=== PATIENT | male | born 1995 | race African-American/Black ===

== ENCOUNTER 2016-02-13 21:02 | Emergency (ER) | payer OTHER ==
[~2016-02-13] VITALS: Ht 172.7 cm; Wt 54.4 kg
[~2016-02-13 21:02] MED LIST: IBUPROFEN600 MG ORAL; MOTRIN400 MG PO; NKM
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
[2016-02-13] MEDS ORDERED: ACETAMINOPHEN-1 EAC1 ORAL (22:05)
[2016-02-13] MEDS ORDERED: Oxycodone/Acetaminophen 5-325 ORAL ONE (22:15)
[2016-02-13 22:25] VITALS: BP 130/72
--- NOTE | 2016-02-18 10:32 | Diagnostic Imaging Report ---
Indication: PAIN Technique: 3 views left hand Comparison: none Findings: There is an oblique fracture of the fourth metacarpal. This is minimally displaced. No other acute fractures. No dislocations. Impression: Positive for fourth metacarpal fracture Electronic medical record indicates this was recognized by the emergency room physician
== END 2016-02-13 22:30 | disposition home or self-care (01) ==
LOC: EMR 21:54
DX: S60.222A Contusion of left hand, initial encounter (principal); X58.XXXA Exposure to other specified factors, initial encounter; Y93.9 Activity, unspecified; Y92.9 Unspecified place or not applicable; M79.642 Pain in left hand
CPT/HCPCS: 29125

== ENCOUNTER 2016-02-27 23:29 | Emergency (ER) | payer OTHER ==
[~2016-02-27] VITALS: Ht 172.7 cm; Wt 58.5 kg
[~2016-02-27 23:29] MED LIST changes: +ACETAMINOPHEN-1 EAC1 ORAL
[2016-02-28 00:06] VITALS: BP 136/81
[2016-02-28 00:15] VITALS: BP 136/81
[2016-02-28] MEDS ORDERED: IBUPROFEN600 MG ORAL (00:37)
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
--- NOTE | 2016-02-28 11:08 | Diagnostic Imaging Report ---
Indication: Trauma Findings: 3 views of the left hand were obtained. There is a cast on the ulnar aspect of the hand. A fourth metacarpal fracture is noted and appears grossly unchanged from the film obtained 02/13/16. The fracture and most of the ulnar aspect of the hand and wrist are obscured by the cast material. Impression: Limited visualization of a fourth metacarpal fracture. Cast material noted.
== END 2016-02-28 00:15 | disposition home or self-care (01) ==
LOC: EMR 02-28 00:15
DX: S62.305A Unspecified fracture of fourth metacarpal bone, left hand, initial encounter for closed fracture (principal); Y04.0XXA Assault by unarmed brawl or fight, initial encounter; Y92.89 Other specified places as the place of occurrence of the external cause; Y99.9 Unspecified external cause status
CPT/HCPCS: 99283

== ENCOUNTER 2016-08-02 23:43 | Emergency (ER) | payer MEDICAID, OTHER ==
[~2016-08-02] VITALS: Ht 172.7 cm; Wt 56.7 kg
[2016-08-03 00:32] LABS: APPEARANCE,URINE SLIGHTLY CLOUDY; KETONES,URINE NEGATIVE (NEGATIVE); LEUKOCYTE ESTERASE ,URINE 1+ (NEGATIVE); NITRITE,URINE NEGATIVE (NEGATIVE); PH,URINE 7 (4.5-8.0); PROTEIN,URINE NEGATIVE (NEGATIVE); UROBILINOGEN,URINE NORMAL MG/DL (0.0-1.0)
[2016-08-03 00:54] LABS: AMORPHOUS SEDIMENT,UR MANY /LPF; BACTERIA,URINE FEW /HPF; RBC,URINE 0-2 /HPF (0 - 0); SQUAMOUS EPITHELIAL CELL,UR FEW /LPF (NONE/OCC)
[2016-08-03] MEDS ORDERED: Azithromycin 250mg tab ORAL ONE (01:00)
[2016-08-03] MEDS ORDERED: Lidocaine 1% MPF 10mg/ml 5ml ONE (01:12)
[2016-08-03 01:21] VITALS: BP 158/94
[2016-08-03 01:26] VITALS: BP 132/78
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
== END 2016-08-03 01:28 | disposition home or self-care (01) ==
LOC: EMR 23:58
DX: N34.2 Other urethritis (principal)
CPT/HCPCS: 81003; 96372; 99283; J0696; Q0144

== ENCOUNTER 2016-08-10 01:08 | Emergency (ER) | payer MEDICAID, OTHER ==
[~2016-08-10] VITALS: Ht 172.7 cm; Wt 56.7 kg
[2016-08-10] MEDS ORDERED: NKM (01:19)
[2016-08-10 01:31] VITALS: BP 147/83
[2016-08-10] MEDS ORDERED: Lidocaine 2% Visc 15ml soln ONE (01:37)
[2016-08-10] MEDS ORDERED: Mylanta II UD 30ml ORAL ONE (01:45)
[2016-08-10] MEDS ORDERED: Lidocaine 2% Visc 15ml soln ORAL ONE (01:45)
[2016-08-10] MEDS ORDERED: PRILOSEC OTC20 MG ORAL (02:07)
--- NOTE | 2016-08-10 02:07 | Emergency Room Report ---
History of Present Illness General Chief Complaint: Abdominal Pain Source: Patient Present Illness HPI Is a 21-year-old male with no significant past medical history. He presents with epigastric pain is been on off for couple weeks. No fever or chills. Crampy in nature. No radiation. No nausea vomiting. No diarrhea. Nothing made it better. Nothing made it worse Allergies: Coded Allergies: No Known Allergies (Unverified , 06/18/12) Patient History Past Medical History: see triage record, old chart reviewed Past Surgical History: other Pertinent Family History: none Social History: Denies: drug use Immunizations: other Reviewed Nursing Documentation: PMH: Agreed, PSxH: Agreed Nursing Documentation-PMH Past Medical History: No Stated History Review of Systems Eye: Denies: blurred vision, eye pain ENT: Denies: ear pain, nose congestion, throat swelling Respiratory: Denies: cough, shortness of breath Cardiovascular: Denies: chest pain, palpitations Gastrointestinal: Reports: abdominal pain, Denies: diarrhea, nausea, vomiting Musculoskeletal: Denies: back pain, joint pain Skin: Denies: rash Neurological: Denies: headache, numbness Endocrine: Denies: increased thirst, increased urine Hematologic/Lymphatic: Denies: easy bruising All Other Systems: negative except mentioned in HPI Physical Exam Vital Signs Date Time Temp Pulse Resp B/P Pulse Ox O2 Delivery O2 Flow Rate FiO2 08/10/16 01:16 97.3 62 14 157/92 96 Room Air vitals normal except for mild hypertension Sp02 EP Interpretation: reviewed, normal General Appearance: well appearing, no apparent distress, alert Head: normocephalic, atraumatic Eyes: bilateral eye EOMI, bilateral eye PERRL ENT: hearing grossly normal, normal pharynx Neck: full range of motion, supple, no meningismus Respiratory: chest non-tender, lungs clear, normal breath sounds Cardiovascular #1: regular rate, rhythm, no murmur Gastrointestinal: normal bowel sounds, non tender, no mass, no organomegaly, no bruit, non-distended Musculoskeletal: back normal, gait/station normal, normal range of motion Psychiatric: mood/affect normal Skin: warm/dry Medical Decision Making Diagnostic Impression: Primary Impression: Gastritis Qualified Codes: K29.00 - Acute gastritis without bleeding ER Course Patient with epigastric pain. This may be peptic ulcer disease, gastritis, H. pylori infection to name a few. Abdominal exam is benign. He is asymptomatic after a GI cocktail. We'll discharge home. I see no evidence of acute abdomen or obstruction. Last Vital Signs Date Time Temp Pulse Resp B/P Pulse Ox O2 Delivery O2 Flow Rate FiO2 08/10/16 01:31 97.3 87 14 147/83 96 Room Air Status: improved Disposition: HOME, SELF-CARE Condition: Stable Scripts Omeprazole Magnesium (PRILOSEC OTC) 20 Mg Tablet. 20 MG ORAL DAILY, #30 TAB Prov: AMANDA MCPHERSON M.D. 08/10/16 Referrals: NOT CHOSEN [facility]/,REFERRING (PCP) Patient Instructions: Gastritis, Adult Additional Instructions: followup your DrAylin in 2-7 days. Return if worse. AMANDA MCPHERSON M.D. Aug 10, 2016 02:07
[2016-08-10 02:14] VITALS: BP 147/83
== END 2016-08-10 02:15 | disposition home or self-care (01) ==
LOC: EMR 01:47
DX: K29.00 Acute gastritis without bleeding (principal)
CPT/HCPCS: 99283

== ENCOUNTER 2016-08-22 16:33 | Emergency (ER) | payer MEDICAID, OTHER ==
[~2016-08-22] VITALS: Ht 172.7 cm; Wt 54.4 kg
[~2016-08-22 16:33] MED LIST changes: +PRILOSEC OTC20 MG ORAL
[2016-08-22 16:45] VITALS: BP 127/72
[2016-08-22] MEDS ORDERED: Mylanta II UD 30ml ORAL ONE (17:00)
[2016-08-22] MEDS ORDERED: Dicyclomine HCl 10mg/5ml oral soln ORAL ONE (17:00)
[2016-08-22] MEDS ORDERED: Lidocaine 2% Visc 15ml soln ORAL ONE (17:00)
[2016-08-22] MEDS ORDERED: Norco 7.5mg/325mg tab ORAL ONE (17:15)
[2016-08-22 17:19] LABS: APPEARANCE,URINE CLEAR; KETONES,URINE NEGATIVE (NEGATIVE); LEUKOCYTE ESTERASE ,URINE 1+ (NEGATIVE); NITRITE,URINE NEGATIVE (NEGATIVE); PH,URINE 7 (4.5-8.0); PROTEIN,URINE NEGATIVE (NEGATIVE); UROBILINOGEN,URINE NORMAL MG/DL (0.0-1.0)
[2016-08-22 17:40] LABS: BACTERIA,URINE FEW /HPF; RBC,URINE 0-2 /HPF (0 - 0)
[2016-08-22] MEDS ORDERED: CEPHALEXIN500 MG ORAL (17:52)
[2016-08-22] MEDS ORDERED: PEPCID20 MG ORAL (17:52)
[2016-08-22 17:59] VITALS: BP 119/79
--- NOTE | 2016-08-22 21:51 | Emergency Room Report ---
History of Present Illness General Chief Complaint: General Complaint Source: Patient Present Illness HPI The patient is a 21-year-old male presenting for multiple complaints including abdominal pain and testicular pain. The patient states that he was recently diagnosed with GERD and has been taking omeprazole which helped with his symptoms but he is now experiencing loading and mid-upper abdominal pain. This is described as a 5/10 dull ache and does not radiate. No known provoking or relieving factors. He also experienced posterior testicular pain which occurred after sex. No known injury. Described as 8/10 dull ache. Worse with touch. He denies dysuria, hematuria, N, V, F, chills, penile DC Allergies: Coded Allergies: No Known Allergies (Unverified , 06/18/12) Patient History Past Medical History: see triage record Pertinent Family History: none Reviewed Nursing Documentation: PMH: Agreed, PSxH: Agreed Nursing Documentation-PMH Past Medical History: No Stated History Review of Systems All Other Systems: negative except mentioned in HPI Physical Exam Vital Signs Date Time Temp Pulse Resp B/P Pulse Ox O2 Delivery O2 Flow Rate FiO2 08/22/16 16:39 97.7 82 14 127/72 100 Room Air Sp02 EP Interpretation: reviewed, normal General Appearance: no apparent distress, alert, GCS 15, non-toxic Head: normocephalic, atraumatic Eyes: bilateral eye PERRL, bilateral eye normal inspection ENT: hearing grossly normal, normal pharynx, no angioedema, normal voice Neck: full range of motion, supple/symm/no masses Gastrointestinal: normal bowel sounds, soft, no mass, non-distended, no guarding, tenderness - epigastric Rectal: deferred Genitourinary: normal inspection, no CVA tenderness Neurologic: alert, oriented x3, responsive, motor strength/tone normal, sensory intact, speech normal Psychiatric: judgement/insight normal, memory normal, mood/affect normal, no suicidal/homicidal ideation Skin: normal color, no rash, warm/dry, well hydrated Medical Decision Making PA Attestation Dr. Howell is my supervising physician. Patient management was discussed with my supervising physician Diagnostic Impression: Primary Impression: GERD (gastroesophageal reflux disease) Qualified Codes: K21.9 - Gastro-esophageal reflux disease without esophagitis Additional Impression: Urinary tract infection Qualified Codes: N39.0 - Urinary tract infection, site not specified ER Course The patient is a 21-year-old male presenting for multiple complaints including abdominal pain and testicular pain. Differential diagnoses considered but not limited to: Gastroenteritis, gastritis , GERD, pancreatitis, appendicitis, UTI, STD, among others Physical exam: Vitals are within normal limits. No apparent distress Abdomen is tender to palpation over the epigastric region only. No guarding. No distention. There is tenderness to palpation over the mid posterior scrotum UA shows bacteria and 1+ leuk esterase The patient is told to stop using omeprazole due to abdominal pain. He is given a prescription for Pepcid and needs to followup with primary doctor soon as possible. Also be treated for a urinary tract infection. ER precautions given Laboratory Tests Test 08/22/16 16:56 Urine Color Pale yellow Urine Appearance Clear Urine pH 7 (4.5-8.0) Urine Specific [place] 1.010 (1.005-1.035) Urine Protein Negative (NEGATIVE) Urine Glucose (UA) Negative (NEGATIVE) Urine Ketones Negative (NEGATIVE) Urine Occult Blood Negative (NEGATIVE) Urine Nitrite Negative (NEGATIVE) Urine Bilirubin Negative (NEGATIVE) Urine Urobilinogen Normal MG/DL (0.0-1.0) Urine Leukocyte Esterase 1+ (NEGATIVE) H Urine RBC 0-2 /HPF (0 - 0) H Urine WBC 2-4 /HPF (0 - 0) Urine Squamous Epithelial Cells None /LPF (NONE/OCC) Urine Bacteria Few /HPF (NONE) Lab Results Impression UA shows bacteria and 1+ leuk esterase Last Vital Signs Date Time Temp Pulse Resp B/P Pulse Ox O2 Delivery O2 Flow Rate FiO2 08/22/16 17:59 16 119/79 98 Room Air 08/22/16 17:49 97.7 08/22/16 16:39 82 Status: improved Disposition: HOME, SELF-CARE Condition: Improved Scripts Cephalexin* (KEFLEX*) 500 Mg Capsule 500 MG ORAL EVERY 12 HOURS, #14 CAP 0 Refills Prov: TERZIAN,GABE P.A. 08/22/16 Famotidine (PEPCID) 20 Mg Tablet 20 MG ORAL DAILY, #7 TAB 0 Refills Prov: TERZIAN,GABE P.A. 08/22/16 Patient Instructions: Safe Sex, Indigestion Additional Instructions: I discussed my findings with the patient. All questions and concerns have been answered. Treatment and medication compliance have been addressed. I advised the patient that they need to follow up with PMD in 3-5 days. Return to ED if symptoms worsen, new symptoms arise, or if needed for any reason. Patient verbalized understanding of discharge instructions. GABE ROME Aug 22, 2016 21:51
== END 2016-08-22 18:03 | disposition home or self-care (01) ==
LOC: EMR 17:17
DX: K21.9 Gastro-esophageal reflux disease without esophagitis (principal); N39.0 Urinary tract infection, site not specified; N50.819 Testicular pain, unspecified
CPT/HCPCS: 81003; 99284

== ENCOUNTER 2016-08-26 22:26 | Emergency (ER) | payer MEDICAID, OTHER ==
[~2016-08-26] VITALS: Ht 172.7 cm; Wt 54.4 kg
[~2016-08-26 22:26] MED LIST changes: +CEPHALEXIN500 MG ORAL; +PEPCID20 MG ORAL
[2016-08-26 23:25] VITALS: BP 147/87
[2016-08-27 00:01] VITALS: BP 147/87
--- NOTE | 2016-08-27 04:47 | Emergency Room Report ---
History of Present Illness General Chief Complaint: Palpitations Source: Patient Present Illness HPI 21-year-old male presents ED complaining of palpitations. States noticing that his heart was racing for the last day. Denies any palpitations at this time. Denies any chest pain shortness of breath. Denies smoking or drug use. Denies feeling anxious. No other aggravating or relieving factors. Denies any other associated symptoms Allergies: Coded Allergies: No Known Allergies (Unverified , 06/18/12) Patient History Past Medical History: none Past Surgical History: none Pertinent Family History: none Social History: Denies: alcohol use, drug use, smoking Immunizations: UTD Reviewed Nursing Documentation: PMH: Agreed, PSxH: Agreed Nursing Documentation-PMH Past Medical History: No History, Except For Review of Systems All Other Systems: negative except mentioned in HPI Physical Exam Vital Signs Date Time Temp Pulse Resp B/P Pulse Ox O2 Delivery O2 Flow Rate FiO2 08/26/16 23:09 97.5 65 18 165/90 97 Room Air Sp02 EP Interpretation: reviewed, normal General Appearance: no apparent distress, alert, GCS 15, non-toxic Head: normocephalic, atraumatic Eyes: bilateral eye PERRL, bilateral eye normal inspection ENT: hearing grossly normal, normal pharynx, no angioedema, normal voice Neck: full range of motion, supple/symm/no masses Respiratory: chest non-tender, lungs clear, normal breath sounds, speaking full sentences Cardiovascular #1: regular rate, rhythm, no edema Cardiovascular #2: 2+ carotid (R), 2+ carotid (L), 2+ radial (R), 2+ radial (L) , 2+ dorsalis pedis (R), 2+ dorsalis pedis (L) Gastrointestinal: normal bowel sounds, non tender, soft, non-distended, no guarding, no rebound Rectal: deferred Genitourinary: normal inspection, no CVA tenderness Musculoskeletal: back normal, gait/station normal, normal range of motion, non- tender Neurologic: alert, oriented x3, responsive, motor strength/tone normal, sensory intact, speech normal Psychiatric: judgement/insight normal, memory normal, mood/affect normal, no suicidal/homicidal ideation Reflexes: 3+ bicep (R), 3+ bicep (L), 3+ tricep (R), 3+ tricep (L), 3+ knee (R) , 3+ knee (L) Skin: normal color, no rash, warm/dry, well hydrated Lymphatic: no adenopathy Medical Decision Making Diagnostic Impression: Primary Impression: Palpitations ER Course Hospital Course 21-year-old M presents ED complaining of palpitations Differential diagnoses include: afib, Vtach, SVT, anxiety, dehydration Clinical course Patient placed on stretcher. After initial history and physical I ordered EKG EKG shows normal sinus rhythm with repolarization abnormality interpreted by myself Given lack of symptoms at this time I believe patient be safely discharged to home. Recommend patient return during episode of palpitations or followup with PMD I. I feel this is a highly complex case requiring extensive working including EKG/Rhythm strip, Xray/CT/US, Blood/urine lab work, repeat exams while in ED, and administration of strong opiates/narcotics for pain control, admission to hospital or close patient follow up. Diagnosis - palpitations Stable and discharged to home. Instructed to followup with PMD. Return to ED if symptoms recur or worsen EKG Diagnostic Results Rate: normal Rhythm: NSR ST Segments: other - repolarization abnromality ASA given to the pt in ED: No Rhythm Strip Diag. Results EP Interpretation: yes Rhythm: NSR, no PVC's, no ectopy Last Vital Signs Date Time Temp Pulse Resp B/P Pulse Ox O2 Delivery O2 Flow Rate FiO2 08/26/16 23:09 97.5 65 18 165/90 97 Room Air Status: improved Disposition: HOME, SELF-CARE Condition: Stable Referrals: [employer] [facility] (PCP) Patient Instructions: Palpitations, [id number] NEFTALI GONZALEZ M.D. Aug 27, 2016 04:47
--- NOTE | 2016-08-28 16:40 | Cardiology Report ---
APPROVED REPORT EKG Measurement Heart [id number] ID [id number] Normal sinus rhythm with sinus arrhythmia RSR' or QR pattern in V1 suggests right ventricular conduction delay Nonspecific ST abnormality Abnormal ECG
== END 2016-08-27 00:01 | disposition home or self-care (01) ==
LOC: EMR 23:27
DX: R00.2 Palpitations (principal)
CPT/HCPCS: 93005; 99283

== ENCOUNTER 2016-09-01 23:47 | Emergency (ER) | payer MEDICAID, OTHER ==
[~2016-09-01] VITALS: Ht 172.7 cm; Wt 56.7 kg
[2016-09-02 00:01] VITALS: BP 126/74
--- NOTE | 2016-09-02 00:15 | Emergency Room Report ---
History of Present Illness General Chief Complaint: Male Urogenital Problems Source: Patient Present Illness HPI Is a 21-year-old male with no significant past medical history. He presents with chief complaint of swelling to the groin area. History of this to omeprazole. He said when he was on it he noticed some mild swelling to his arm , chest, face area. He stopped and he seemed to improve. Now he said that groin area would swell up and down. Denies any fever or chills. Denies any nausea or vomiting. Nothing made it better. Nothing made it worse. He point to the perineal area. Allergies: Coded Allergies: No Known Allergies (Unverified , 06/18/12) Patient History Past Medical History: see triage record, old chart reviewed Past Surgical History: other Pertinent Family History: none Social History: Denies: drug use Immunizations: other Reviewed Nursing Documentation: PMH: Agreed, PSxH: Agreed Review of Systems Eye: Denies: blurred vision, eye pain ENT: Denies: ear pain, nose congestion, throat swelling Respiratory: Denies: cough, shortness of breath Cardiovascular: Denies: chest pain, palpitations Gastrointestinal: Denies: abdominal pain, diarrhea, nausea, vomiting Musculoskeletal: Denies: back pain, joint pain Skin: Denies: rash Neurological: Denies: headache, numbness Endocrine: Denies: increased thirst, increased urine Hematologic/Lymphatic: Denies: easy bruising All Other Systems: negative except mentioned in HPI Physical Exam Vital Signs Date Time Temp Pulse Resp B/P Pulse Ox O2 Delivery O2 Flow Rate FiO2 09/01/16 23:52 98.1 78 18 126/74 100 Room Air vitals normal Sp02 EP Interpretation: reviewed, normal General Appearance: well appearing, no apparent distress, alert Head: normocephalic, atraumatic Eyes: bilateral eye EOMI, bilateral eye PERRL ENT: hearing grossly normal, normal pharynx Neck: full range of motion, supple, no meningismus Respiratory: chest non-tender, lungs clear, normal breath sounds Cardiovascular #1: regular rate, rhythm, no murmur Gastrointestinal: normal bowel sounds, non tender, no mass, no organomegaly, no bruit, non-distended Genitourinary: normal inspection, penis normal, scrotum normal Musculoskeletal: back normal, gait/station normal, normal range of motion Psychiatric: mood/affect normal Skin: warm/dry Medical Decision Making Diagnostic Impression: Primary Impression: Groin pain Qualified Codes: R10.30 - Lower abdominal pain, unspecified ER Course Patient with nonspecific groin pain. My exam is completely normal. I suspect is mostly anxiety related. No evidence of infection. No evidence of abscess. Patient reassured we'll discharge home. Last Vital Signs Date Time Temp Pulse Resp B/P Pulse Ox O2 Delivery O2 Flow Rate FiO2 09/01/16 23:52 98.1 78 18 126/74 100 Room Air Status: unchanged Disposition: HOME, SELF-CARE Condition: Stable Additional Instructions: followup with your Dr. in 7 days. Return if symptom worsen. AMANDA MCPHERSON M.D. Sep 02, 2016 00:15
[2016-09-02 00:23] VITALS: BP 126/74
[2016-09-02] MEDS ORDERED: FAMOTIDINE20 MG ORAL (23:17)
== END 2016-09-02 00:23 | disposition home or self-care (01) ==
LOC: EMR 09-02 00:10
DX: R10.30 Lower abdominal pain, unspecified (principal)
CPT/HCPCS: 99282; 99283

== ENCOUNTER 2016-09-02 22:36 | Emergency (ER) | payer MEDICAID, OTHER ==
[~2016-09-02] VITALS: Ht 172.7 cm; Wt 56.7 kg
[2016-09-02 23:10] VITALS: BP 128/82
[2016-09-02] MEDS ORDERED: FAMOTIDINE20 MG ORAL (23:17)
[2016-09-02 23:25] VITALS: BP 128/82
--- NOTE | 2016-09-02 23:26 | Emergency Room Report ---
History of Present Illness General Chief Complaint: Medication Refill Present Illness HPI Patient is a 21-year-old male who presented after increased epigastric discomfort. Patient recently stopped his Pepcid. He reports having increased burning sensation his epigastric area. Patient presented for medication refill. He denied any black or bloody stools. He denied any vomiting. Allergies: Coded Allergies: No Known Allergies (Unverified , 06/18/12) Patient History Past Medical History: see triage record Reviewed Nursing Documentation: PMH: Agreed, PSxH: Agreed Review of Systems All Other Systems: negative except mentioned in HPI Physical Exam Vital Signs Date Time Temp Pulse Resp B/P Pulse Ox O2 Delivery O2 Flow Rate FiO2 09/02/16 22:59 97.9 88 16 131/80 99 Sp02 EP Interpretation: normal General Appearance: GCS 15 Head: normocephalic, atraumatic ENT: hearing grossly normal, normal voice Neck: full range of motion, supple Respiratory: no respiratory distress, speaking full sentences Cardiovascular #1: normal inspection Gastrointestinal: normal inspection Musculoskeletal: no calf tenderness, other - fracture to left hand Neurologic: normal inspection, alert, normal gait Psychiatric: mood/affect normal Skin: no rash Medical Decision Making Diagnostic Impression: Primary Impression: Medicine refill ER Course Patient presented for medication refill of Pepcid. The patient was given a refill for Pepcid. Patient shows no acute signs of toxicity require further workup.The patient is advised to follow up with primary care doctor in 1-2 days. Patient is advised to return if any worsening condition or if any changes in status that are concerning. Last Vital Signs Date Time Temp Pulse Resp B/P Pulse Ox O2 Delivery O2 Flow Rate FiO2 09/02/16 22:59 97.9 88 16 131/80 99 Status: improved Disposition: HOME, SELF-CARE Condition: Stable Scripts Famotidine (FAMOTIDINE) 20 Mg Tablet 20 MG ORAL DAILY, #30 TAB 0 Refills Prov: Nick Abad 09/02/16 Patient Instructions: Medicine Refill at the Emergency Department Nick Abad Sep 02, 2016 23:26
== END 2016-09-02 23:25 | disposition home or self-care (01) ==
LOC: EMR 23:10
DX: R10.13 Epigastric pain (principal); Z76.0 Encounter for issue of repeat prescription
CPT/HCPCS: 99283

== ENCOUNTER 2016-09-23 20:58 | Emergency (ER) | payer OTHER ==
[~2016-09-23] VITALS: Ht 172.7 cm; Wt 54.4 kg
[~2016-09-23 20:58] MED LIST changes: +FAMOTIDINE20 MG ORAL
[2016-09-23 21:45] VITALS: BP 125/76
[2016-09-23 21:52] LABS: APPEARANCE,URINE CLEAR; KETONES,URINE NEGATIVE (NEGATIVE); LEUKOCYTE ESTERASE ,URINE 1+ (NEGATIVE); NITRITE,URINE NEGATIVE (NEGATIVE); PH,URINE 6.5 (4.5-8.0); PROTEIN,URINE NEGATIVE (NEGATIVE); UROBILINOGEN,URINE NORMAL MG/DL (0.0-1.0)
[2016-09-23 22:02] LABS: BACTERIA,URINE OCCASIONAL /HPF; RBC,URINE 0-2 /HPF (0 - 0); WBC,URINE 0-2 /HPF (0 - 0)
[2016-09-23] MEDS ORDERED: KEFLEX500 MG ORAL (22:13)
[2016-09-23 22:20] VITALS: BP 120/76
[2016-09-23 22:25] VITALS: BP 120/76
--- NOTE | 2016-09-23 23:27 | Emergency Room Report ---
History of Present Illness General Chief Complaint: Eye Problems Source: Patient Present Illness HPI 21-year-old male presents to ER for evaluation. States that last 3 days she's noticed some in pain with urination. Denies any discharge. Denies any recent sexual activity. And patient was triaged as and having photophobia. Patient states he had some photophobia for a few moments a few days ago which has since resolved. No other aggravating relieving factors. Denies any other associated symptoms Allergies: Coded Allergies: No Known Allergies (Unverified , 06/18/12) Patient History Past Medical History: none Past Surgical History: none Pertinent Family History: none Social History: Denies: alcohol use, drug use, smoking Immunizations: UTD Reviewed Nursing Documentation: PMH: Agreed, PSxH: Agreed Review of Systems All Other Systems: negative except mentioned in HPI Physical Exam Vital Signs Date Time Temp Pulse Resp B/P Pulse Ox O2 Delivery O2 Flow Rate FiO2 09/23/16 21:25 98.1 77 18 124/75 98 Room Air Sp02 EP Interpretation: reviewed, normal General Appearance: no apparent distress, alert, GCS 15, non-toxic Head: normocephalic, atraumatic Eyes: bilateral eye PERRL, bilateral eye normal inspection ENT: hearing grossly normal, normal pharynx, no angioedema, normal voice Neck: full range of motion, supple/symm/no masses Respiratory: chest non-tender, lungs clear, normal breath sounds, speaking full sentences Cardiovascular #1: regular rate, rhythm, no edema Cardiovascular #2: 2+ carotid (R), 2+ carotid (L), 2+ radial (R), 2+ radial (L) , 2+ dorsalis pedis (R), 2+ dorsalis pedis (L) Gastrointestinal: normal bowel sounds, non tender, soft, non-distended, no guarding, no rebound Rectal: deferred Genitourinary: normal inspection, no CVA tenderness Musculoskeletal: back normal, gait/station normal, normal range of motion, non- tender Neurologic: alert, oriented x3, responsive, motor strength/tone normal, sensory intact, speech normal Psychiatric: judgement/insight normal, memory normal, mood/affect normal, no suicidal/homicidal ideation Reflexes: 3+ bicep (R), 3+ bicep (L), 3+ tricep (R), 3+ tricep (L), 3+ knee (R) , 3+ knee (L) Skin: normal color, no rash, warm/dry, well hydrated Lymphatic: no adenopathy Medical Decision Making Diagnostic Impression: Primary Impression: UTI (urinary tract infection) Qualified Codes: N39.0 - Urinary tract infection, site not specified ER Course Hospital Course 21-year-old male presents to ED complaining of dysuria Differential diagnoses include: UTI, cystitis, pyelonephritis Clinical course Patient placed on stretcher. After initial history and physical I ordered UA UA shows evidence of UTI Diagnosis - UTI Stable and discharged home with prescriptions for Rx Keflex. instructed to followup with PMD. Return to ED if symptoms recur or worsen Labs Test 09/23/16 21:41 Urine Color Pale yellow Urine Appearance Clear Urine pH 6.5 (4.5-8.0) Urine Specific [place] 1.015 (1.005-1.035) Urine Protein Negative (NEGATIVE) Urine Glucose (UA) Negative (NEGATIVE) Urine Ketones Negative (NEGATIVE) Urine Occult Blood Negative (NEGATIVE) Urine Nitrite Negative (NEGATIVE) Urine Bilirubin Negative (NEGATIVE) Urine Urobilinogen Normal MG/DL (0.0-1.0) Urine Leukocyte Esterase 1+ (NEGATIVE) Urine RBC 0-2 /HPF (0 - 0) Urine WBC 0-2 /HPF (0 - 0) Urine Squamous Epithelial Cells None /LPF (NONE/OCC) Urine Bacteria Occasional /HPF (NONE) Last Vital Signs Date Time Temp Pulse Resp B/P Pulse Ox O2 Delivery O2 Flow Rate FiO2 09/23/16 22:25 98.2 82 17 120/76 98 Room Air Status: improved Disposition: HOME, SELF-CARE Condition: Stable Scripts Cephalexin* (KEFLEX*) 500 Mg Capsule 500 MG ORAL Q6H, #28 CAP 0 Refills Prov: NEFTALI GONZALEZ M.D. 09/23/16 Referrals: [facility] (PCP) Patient Instructions: Dysuria NEFTALI GONZALEZ M.D. Sep 23, 2016 23:27
== END 2016-09-23 22:25 | disposition home or self-care (01) ==
LOC: EMR 21:26
DX: N39.0 Urinary tract infection, site not specified (principal)
CPT/HCPCS: 81003; 99283

== ENCOUNTER 2017-06-21 12:19 | Emergency (ER) | payer MEDICAID, OTHER ==
[~2017-06-21] VITALS: Ht 172.7 cm; Wt 56.7 kg
[~2017-06-21 12:19] MED LIST changes: +KEFLEX500 MG ORAL
[2017-06-21] MEDS ORDERED: Lidocaine 1% MPF 10mg/ml 5ml INJ ONE (12:45)
[2017-06-21 12:59] VITALS: BP 138/84
[2017-06-21 14:10] LABS: APPEARANCE,URINE CLEAR; BILIRUBIN, URINE NEGATIVE (NEGATIVE); GLUCOSE, URINE (UA) NEGATIVE (NEGATIVE); KETONES,URINE NEGATIVE (NEGATIVE); LEUKOCYTE ESTERASE ,URINE NEGATIVE (NEGATIVE); NITRITE,URINE NEGATIVE (NEGATIVE); PH,URINE 6 (4.5-8.0); PROTEIN,URINE 1+ (NEGATIVE); UROBILINOGEN,URINE 4 MG/DL (0.0-1.0)
--- NOTE | 2017-06-21 14:15 | Emergency Room Report ---
History of Present Illness General Chief Complaint: Male Urogenital Problems Source: Patient Present Illness HPI 22 YO Male Penile "irritation" and clear d/c x 1 day. denies rashes, lesions, swollen tender lymph nodes, testicular pain or swelling. pt. denies recent unprotected sexual intercourse. pt. reports hx of std's in the past and states his symptoms are not similar. denies abdominal pain or tenderness. Denies fevers, chills, or joint pain. Pt. reports some dysuria. Allergies: Coded Allergies: No Known Allergies (Unverified , 06/18/12) Patient History Past Medical History: see triage record Past Surgical History: none Pertinent Family History: none Reviewed Nursing Documentation: PMH: Agreed; PSxH: Agreed Nursing Documentation-PMH Past Medical History: No Stated History Review of Systems All Other Systems: negative except mentioned in HPI Physical Exam Vital Signs Date Time Temp Pulse Resp B/P (MAP) Pulse Ox O2 Delivery O2 Flow Rate FiO2 06/21/17 12:25 97.9 75 12 138/84 97 Room Air 97.9 Sp02 EP Interpretation: reviewed, normal General Appearance: no apparent distress, alert, GCS 15, non-toxic Head: normocephalic, atraumatic Eyes: bilateral eye normal inspection, bilateral eye PERRL ENT: hearing grossly normal, normal voice Neck: full range of motion Respiratory: chest non-tender, lungs clear, normal breath sounds, speaking full sentences Cardiovascular #1: regular rate, rhythm Gastrointestinal: normal bowel sounds, non tender, soft Rectal: deferred Genitourinary: normal inspection, scrotum normal, other - clear penile d/c noted/ mucus, non purulent, no rashes , lesions , no testicular tenderness or swelling. Musculoskeletal: back normal, gait/station normal, normal range of motion, non- tender Neurologic: alert, oriented x3, responsive, motor strength/tone normal, sensory intact, speech normal, grossly normal Psychiatric: judgement/insight normal Skin: normal color, no rash, warm/dry, well hydrated Lymphatic: no adenopathy Medical Decision Making PA Attestation Dr. Mejía is my supervising Physician whom patient management has been discussed with. Diagnostic Impression: Primary Impression: Urethritis ER Course 22 YO Male Penile "irritation" and clear d/c x 1 day. denies rashes, lesions, swollen tender lymph nodes, testicular pain or swelling. pt. denies recent unprotected sexual intercourse. pt. reports hx of std's in the past and states his symptoms are not similar. denies abdominal pain or tenderness. Denies fevers, chills, or joint pain. Pt. reports some dysuria. Ddx considered but are not limited to UTi , Urethritis, LGV, STI, Stone, Cystitis, prostatitis Frame Fixer for PE was: RX. Trujong. Vital signs: are WNL, pt. is afebrile H&PE are most consistent with Urethritis ORDERS: - UA : few mucus, negative nitrite, no inflammatory marker elevation. ED INTERVENTIONS: -250mg Rocephin IM DISCHARGE: At this time pt. is stable for d/c to home. Will provide printed patient care instructions, and any necessary prescriptions. Care plan and follow up instructions have been discussed with the patient prior to discharge. Labs Test 06/21/17 12:29 Urine Color Yellow Urine Appearance Clear Urine pH 6 (4.5-8.0) Urine Specific [place] 1.020 (1.005-1.035) Urine Protein 1+ (NEGATIVE) Urine Glucose (UA) Negative (NEGATIVE) Urine Ketones Negative (NEGATIVE) Urine Occult Blood Negative (NEGATIVE) Urine Nitrite Negative (NEGATIVE) Urine Bilirubin Negative (NEGATIVE) Urine Urobilinogen 4 MG/DL (0.0-1.0) Urine Leukocyte Esterase Negative (NEGATIVE) Urine RBC 0-2 /HPF (0 - 0) Urine WBC 0-2 /HPF (0 - 0) Urine Squamous Epithelial Cells Few /LPF (NONE/OCC) Urine Bacteria Few /HPF (NONE) Urine Hyaline Casts 0-2 /LPF (NONE) Urine Mucus Few /LPF (NONE/OCC) Last Vital Signs Date Time Temp Pulse Resp B/P (MAP) Pulse Ox O2 Delivery O2 Flow Rate FiO2 06/21/17 12:59 97.9 12 138/84 97 Room Air 97.9 06/21/17 12:25 75 Disposition: HOME, SELF-CARE Condition: Stable Scripts Phenazopyridine Hcl* (PYRIDIUM*) 200 Mg Tablet 200 MG ORAL THREE TIMES A DAY for 2 Days, #6 TAB 0 Refills Prov: Darleen Vergara P.A. 06/21/17 Doxycycline Hyclate* (VIBRAMYCIN*) 100 Mg Capsule 100 MG ORAL EVERY 12 HOURS for 7 Days, #14 CAP 0 Refills Prov: Darleen Vergara 06/21/17 Referrals: NON PHYSICIAN (PCP) Patient Instructions: Urethritis, Adult Additional Instructions: Take medications as directed. Follow up with a Primary Care Provider in 3-5 days, even if your symptoms have resolved. --Please review list of primary care clinics, if you do not already have a primary care provider Return sooner to ED if new symptoms occur, or current symptoms become worse. - Please note that this Emergency Department Report was dictated using [employer] clinical specialist technology software, occasionally this can lead to erroneous entry secondary to interpretation by the dictation equipment. Darleen Vergara June 21, 2017 14:15
[2017-06-21 14:16] LABS: COLOR,URINE YELLOW
[2017-06-21] MEDS ORDERED: PHENAZOPYRIDIN200 MG ORAL (14:54)
[2017-06-21] MEDS ORDERED: VIBRAMYCIN100 MG ORAL (14:54)
[2017-06-21 15:34] VITALS: BP 138/84
== END 2017-06-21 15:34 | disposition home or self-care (01) ==
LOC: EMR 12:44
DX: N34.2 Other urethritis (principal)
CPT/HCPCS: 81003; 96372; 99284; J0696

== ENCOUNTER 2017-07-11 12:29 | Emergency (ER) | payer MEDICAID ==
[~2017-07-11] VITALS: Ht 172.7 cm; Wt 54.4 kg
[~2017-07-11 12:29] MED LIST changes: +PHENAZOPYRIDIN200 MG ORAL; +VIBRAMYCIN100 MG ORAL
[2017-07-11 12:50] VITALS: BP 144/93
[2017-07-11] MEDS ORDERED: IBUPROFEN600 MG ORAL (13:09)
--- NOTE | 2017-07-11 13:14 | Emergency Room Report ---
History of Present Illness General Chief Complaint: General Complaint Source: Patient Present Illness HPI 22-year-old male with no medical problems comes ER with complaints of finding a swollen lymph node in his left neck, he reports he also has a sore throat, but no fevers, he reports he wants his urine checked. However when I ask about the urine question, he reports he is not having discharge [place] dysuria nor frequency no hematuria. He reports he requested urine checked because he's gotten it checked here in the past and told that he had mucus in his urine on past urinalysis. He reports he does have a primary care doctor and I recommend he follow up with him in a week and he did agree to do that, and he reported he just wanted to get his lymph node checked is the main reason he is here. He does admit to sore throat, he does not endorse any trouble phonating, and reports he is monogamous with a single sex partner. He denies fevers shortness of breath or any other complaints at all. Allergies: Coded Allergies: No Known Allergies (Unverified , 06/18/12) Patient History Past Medical History: see triage record Reviewed Nursing Documentation: PMH: Agreed; PSxH: Agreed Nursing Documentation-PMH Past Medical History: No Stated History Review of Systems All Other Systems: negative except mentioned in HPI Physical Exam Vital Signs Date Time Temp Pulse Resp B/P (MAP) Pulse Ox O2 Delivery O2 Flow Rate FiO2 07/11/17 12:40 98.1 68 18 144/93 97 Room Air 98.1 Sp02 EP Interpretation: reviewed, normal General Appearance: no apparent distress, alert, non-toxic Head: normocephalic Eyes: bilateral eye normal inspection, bilateral eye PERRL, bilateral eye EOMI ENT: normal ENT inspection, hearing grossly normal, normal pharynx, no angioedema, normal voice, uvula midline, moist mucus membranes Neck: normal inspection, full range of motion, supple, supple/symm/no masses Respiratory: chest non-tender, lungs clear, normal breath sounds, chest symmetrical, palpation of chest normal Cardiovascular #1: normal peripheral pulses, regular rate, rhythm Cardiovascular #2: 2+ radial (R), 2+ radial (L) Gastrointestinal: normal inspection, non tender, soft, no mass, no guarding, no rebound Rectal: deferred Genitourinary: normal inspection, no CVA tenderness, penis normal - uncircumcized, but no erythema, no discharge, no lesions, scrotum normal Musculoskeletal: back normal, gait/station normal, normal range of motion, non- tender, no calf tenderness Neurologic: alert, responsive, classroom aide III-XII nml as tested, motor strength/tone normal, sensory intact, speech normal Psychiatric: judgement/insight normal, memory normal, mood/affect normal, no suicidal/homicidal ideation Skin: normal color, no rash, warm/dry, normal turgor Lymphatic: axilla node tender (L) - L submandibular node, mildly tender Medical Decision Making Diagnostic Impression: Primary Impression: Lymphadenopathy of left cervical region ER Course Patient with normal ENT exam, normal genitourinary exam, but does have a small palpable left submandibular region cervical lymph node, that is palpable, but not warm, and only minimally tender. He does have a sore throat by history, but a normal examination of his throat. He is sexually monogamous, and has had multiple urinalysis test here in the past at a been fairly unremarkable, never reflexed positive for culture. He has no urinary symptoms currently, we'll not check any tests. Recommend he follow up with his primary care doctor to reevaluate his lymph node to ensure that it resolves when his sore throat resolves. Last Vital Signs Date Time Temp Pulse Resp B/P (MAP) Pulse Ox O2 Delivery O2 Flow Rate FiO2 07/11/17 12:50 98.1 18 144/93 97 Room Air 98.1 07/11/17 12:40 68 Disposition: HOME, SELF-CARE Condition: Stable Scripts Ibuprofen* (MOTRIN*) 600 Mg Tablet 600 MG ORAL Q8H PRN for For Pain, #10 TAB 0 Refills Prov: JEWEL MCKEON M.D 07/11/17 Referrals: NON PHYSICIAN (PCP) Departure Forms: Return to Work Return to Work in (Days): 1 Patient Instructions: Lymphadenopathy, Pharyngitis, [id number] JEWEL MCKEON M.D Jul 11, 2017 13:14
[2017-07-11 13:23] VITALS: BP 144/93
== END 2017-07-11 13:23 | disposition home or self-care (01) ==
LOC: EMR 13:08
DX: R59.0 Localized enlarged lymph nodes (principal)
CPT/HCPCS: 99283

== ENCOUNTER 2017-07-24 17:30 | Emergency (ER) | payer MEDICAID ==
[~2017-07-24] VITALS: Ht 172.7 cm; Wt 54.4 kg
[2017-07-24] MEDS ORDERED: Lidocaine 1% MPF 10mg/ml 5ml INJ ONE (18:00)
[2017-07-24] MEDS ORDERED: Azithromycin 250mg tab ORAL ONE (18:00)
[2017-07-24 18:21] VITALS: BP 157/88
--- NOTE | 2017-07-24 18:58 | Emergency Room Report ---
History of Present Illness General Chief Complaint: Male Urogenital Problems Source: Patient, Medical Record Present Illness HPI 22-year-old male patient presents ER complaining of penile discharge intermittently for the past 3 days. Reports recent sexual activity with girlfriend, denies other sexual partners. Reports history of sexual transmitted infections. Reports history of urethritis treated here one month ago. Denies dysuria, hematuria. Denies penile rash. Denies other acute symptoms. Denies fever, chest pain, shortness breath, abdominal pain, flank pain. Denies rash. patient girlfriend currently being seen in ER, girlfriend is asymptomatic at this time. Allergies: Coded Allergies: No Known Allergies (Unverified , 06/18/12) Patient History Past Medical History: see triage record Reviewed Nursing Documentation: PMH: Agreed; PSxH: Agreed Nursing Documentation-PMH Past Medical History: No History, Except For Review of Systems All Other Systems: negative except mentioned in HPI Physical Exam Vital Signs Date Time Temp Pulse Resp B/P (MAP) Pulse Ox O2 Delivery O2 Flow Rate FiO2 07/24/17 17:34 97.8 72 18 157/88 95 Room Air 97.9 Sp02 EP Interpretation: reviewed, normal General Appearance: well appearing, no apparent distress, alert, GCS 15, non- toxic Head: normocephalic, atraumatic Eyes: bilateral eye normal inspection, bilateral eye PERRL Neck: full range of motion Respiratory: lungs clear, normal breath sounds, no rhonchi, no respiratory distress, no accessory muscle use, no wheezing, speaking full sentences Cardiovascular #1: regular rate, rhythm, no edema Gastrointestinal: non tender, soft, no mass, non-distended, no guarding, no rebound Genitourinary: no CVA tenderness, penis normal - Uncircumcised, scrotum normal , other - No Bubo, no chancre, no blisters or vesicles, no rash, no lesions Musculoskeletal: back normal, digits/nails normal, gait/station normal, normal range of motion, non-tender Neurologic: alert, oriented x3, responsive, motor strength/tone normal, sensory intact Skin: no rash Lymphatic: no adenopathy Medical Decision Making PA Attestation Dr. Joy is my supervising Physician whom patient management has been discussed with. Diagnostic Impression: Primary Impression: Encounter for assessment of sexually transmitted disease exposure ER Course Pt. presents to the ED c/o possible STI. Ddx considered but are not limited to gonorrhea, chlamydia, cystitis, pyelonephritis. Vital signs: are WNL, pt. is afebrile ER COURSE: Ordered Azithromycin and Rocephin to cover for gonorrhea and chlamydia. Informed patient he needs to follow with STI clinic for further testing and treatment. Needs to be evaluated for other diseases including not limited to HIV and syphilis. Patient reports he has appointment with the physician scheduled, will be tested at that time. inform all sexual contacts for need for evaluation and treatment. Wear condoms to prevent admission of sexual transmitted disease. Avoid sexual activity for 2 weeks. UA show negative nitrites, negative leukocyte esterase, 0-2 WBCs, low suspicion for infection, patient probably does not have UTI, will not provide antibiotic medication at discharge for treatment. drink plenty of fluids. DISCHARGE: Advised to use safe sex practices including but not limited to use of condoms. Instructed patient to follow up with STI clinic and/or PCP for future STI treatment and prevention. Instructed patient to inform partner of need for treatment to prevent future infection. Patient is resting comfortably, in no acute distress, nontoxic appearing, talking without difficulty. Patient to take medications as instructed Will provide with patient care instructions and any necessary prescriptions. Care plan and follow-up instructions provided. Patient instructed to follow-up with primary care provider in 1-3 days. Patient questions asked and answered. Patient reports understanding and agreement to treatment plan. ER precautions given. Patient instructed to return to ER immediately for any new or worsening of symptoms including but not limited to increasing SOB, persistent fever. - Please note that this Emergency Department Report was dictated using [employer]ocularist technology software, occasionally this can lead to erroneous entry secondary to interpretation by the dictation equipment. Labs Test 07/24/17 18:44 Urine Color Yellow Urine Appearance Clear Urine pH 6.5 (4.5-8.0) Urine Specific [place] 1.015 (1.005-1.035) Urine Protein 2+ (NEGATIVE) Urine Glucose (UA) Negative (NEGATIVE) Urine Ketones Negative (NEGATIVE) Urine Occult Blood Negative (NEGATIVE) Urine Nitrite Negative (NEGATIVE) Urine Bilirubin Negative (NEGATIVE) Urine Urobilinogen 1 MG/DL (0.0-1.0) Urine Leukocyte Esterase Negative (NEGATIVE) Urine RBC 0-2 /HPF (0 - 0) Urine WBC 0-2 /HPF (0 - 0) Urine Squamous Epithelial Cells None /LPF (NONE/OCC) Urine Bacteria Few /HPF (NONE) Urine Mucus Many /LPF (NONE/OCC) Last Vital Signs Date Time Temp Pulse Resp B/P (MAP) Pulse Ox O2 Delivery O2 Flow Rate FiO2 07/24/17 17:34 97.8 72 18 157/88 95 Room Air 97.9 Disposition: HOME, SELF-CARE Condition: Stable Patient Instructions: Sexually Transmitted Disease, [id number] Additional Instructions: Followup with primary care provider for further treatment and referral. Follow with STI clinic of unable to be seen by PCP for testing and treatment of gonorrhea, chlamydia, HIV, syphilis. Take medications as directed. Use condoms during sex. Avoid sexual activity for 2 weeks. Inform all partners of need for testing and treatment for possible STI. Patient questions asked and answered. ER precautions given, patient instructed to return to ER immediately for any new or worsening of symptoms. Ovi Modi Jul 24, 2017 18:58
[2017-07-24 19:00] LABS: APPEARANCE,URINE CLEAR; BILIRUBIN, URINE NEGATIVE (NEGATIVE); GLUCOSE, URINE (UA) NEGATIVE (NEGATIVE); KETONES,URINE NEGATIVE (NEGATIVE); LEUKOCYTE ESTERASE ,URINE NEGATIVE (NEGATIVE); NITRITE,URINE NEGATIVE (NEGATIVE); PH,URINE 6.5 (4.5-8.0); PROTEIN,URINE 2+ (NEGATIVE); UROBILINOGEN,URINE 1 MG/DL (0.0-1.0)
[2017-07-24 19:02] LABS: COLOR,URINE YELLOW
[2017-07-24 19:05] VITALS: BP 126/77
== END 2017-07-24 19:05 | disposition home or self-care (01) ==
LOC: EMR 18:06
DX: R36.9 Urethral discharge, unspecified (principal); Z20.2 Contact with and (suspected) exposure to infections with a predominantly sexual mode of transmission
CPT/HCPCS: 81003; 96372; 96374; 99284; J0696; Q0144

== ENCOUNTER 2017-08-20 22:32 | Emergency (ER) | payer MEDICAID ==
[~2017-08-20] VITALS: Ht 172.7 cm; Wt 56.7 kg
[2017-08-20] MEDS ORDERED: NKM (22:43)
[2017-08-20 23:00] VITALS: BP 155/88
[2017-08-21 00:11] VITALS: BP 155/88
--- NOTE | 2017-08-21 03:00 | Emergency Room Report ---
History of Present Illness General Chief Complaint: Male Urogenital Problems Source: Patient Present Illness HPI Patient presents with complaints of palpable lymph node in the left inguinal region Denies any pain to it at this time Denies any fevers or chills Patient reports that he is in a monogamous relationship Denies any fevers or chills and eyes any other trauma He reports that he previously had injury to the right groin and at times he does have some discomfort with walking and running Denies any vomiting or diarrhea denies any testicular pain Allergies: Coded Allergies: No Known Allergies (Unverified , 06/18/12) Patient History Past Medical History: see triage record Pertinent Family History: none Reviewed Nursing Documentation: PMH: Agreed; PSxH: Agreed Nursing Documentation-PMH Past Medical History: No History, Except For Review of Systems All Other Systems: negative except mentioned in HPI Physical Exam Vital Signs Date Time Temp Pulse Resp B/P (MAP) Pulse Ox O2 Delivery O2 Flow Rate FiO2 08/20/17 22:38 98.2 71 16 155/88 99 Room Air 98.2 Sp02 EP Interpretation: reviewed, normal General Appearance: well appearing, no apparent distress Head: normocephalic, atraumatic Eyes: bilateral eye PERRL, bilateral eye EOMI ENT: normal pharynx, no angioedema Neck: full range of motion, supple Respiratory: lungs clear Cardiovascular #1: regular rate, rhythm, no edema Gastrointestinal: non tender, soft, no mass Genitourinary: other - The inguinal region is palpated there are palpable small nodes on the left side, however palpating on the right side patient has similar findings, patient's body habitus is fairly thin and likely baseline lymph nodes that are palpable. The are not tender and did not palpate as enlarged Musculoskeletal: normal inspection Neurologic: alert, oriented x3 Skin: normal color, no rash Lymphatic: normal inspection Medical Decision Making Diagnostic Impression: Primary Impression: groin strain ER Course Patient has had multiple presentations for similar complaints in the past Has had antibiotic coverage previously At this time I did also show the patient that he has similar findings on both inguinal region He also now reports that he had some sprain of his right groin which had caused him some pain previously as well Otherwise patient is discussed regarding the need for close outpatient follow- up and will return with any changes Last Vital Signs Date Time Temp Pulse Resp B/P (MAP) Pulse Ox O2 Delivery O2 Flow Rate FiO2 08/21/17 00:11 98.2 71 16 155/88 99 Room Air 98.2 Status: unchanged Disposition: HOME, SELF-CARE Condition: Stable Referrals: NON PHYSICIAN (PCP) Patient Instructions: Groin Strain Additional Instructions: Patient is provided with the discharge instructions notified to follow up with primary doctor in the next 2-3 days otherwise return to the er with any worsening symptoms. Please note that this report is being documented using [employer] technology. This can lead to erroneous entry secondary to incorrect interpretation by the dictating instrument. Crissy Joy DO Aug 21, 2017 03:00
== END 2017-08-21 00:10 | disposition home or self-care (01) ==
LOC: EMR 23:01
DX: S39.011A Strain of muscle, fascia and tendon of abdomen, initial encounter (principal); X58.XXXA Exposure to other specified factors, initial encounter; Y92.9 Unspecified place or not applicable
CPT/HCPCS: 99282

== ENCOUNTER 2017-10-06 20:16 | Emergency (ER) | payer MEDICAID ==
[~2017-10-06] VITALS: Ht 172.7 cm; Wt 56.7 kg
[2017-10-06 20:35] VITALS: BP 142/83
[2017-10-06] MEDS ORDERED: Azithromycin 250mg tab ORAL ONE (21:00)
[2017-10-06] MEDS ORDERED: Bicillin LA 2.4MMU/4ML SYR IM ONE (21:00)
[2017-10-06 21:17] VITALS: BP 142/83
--- NOTE | 2017-10-06 21:35 | Emergency Room Report ---
History of Present Illness General Chief Complaint: Male Urogenital Problems Source: Patient Present Illness HPI Patient presents with complaints of penile discharge Reports that over the day today he has noticed several episodes of greenish yellowish discharge Denies any testicular pain and eyes any fevers or chills Denies any lymphadenopathy at this time however patient has had several presentations previously with complaints of lymphadenopathy denies any neck pain or photophobia denies any abdominal pain denies any vomiting patient is sexually active with one partner Allergies: Coded Allergies: No Known Allergies (Unverified , 06/18/12) Patient History Past Medical History: see triage record Pertinent Family History: none Reviewed Nursing Documentation: PMH: Agreed; PSxH: Agreed Review of Systems All Other Systems: negative except mentioned in HPI Physical Exam Vital Signs Date Time Temp Pulse Resp B/P (MAP) Pulse Ox O2 Delivery O2 Flow Rate FiO2 10/06/17 20:33 97.8 61 16 142/83 98 Room Air 97.9 Sp02 EP Interpretation: reviewed, normal General Appearance: well appearing, no apparent distress Head: normocephalic, atraumatic Eyes: bilateral eye PERRL, bilateral eye EOMI ENT: hearing grossly normal, normal pharynx, TMs + canals normal, uvula midline Neck: full range of motion, supple, no meningismus, no bony tend Respiratory: lungs clear, normal breath sounds, no rhonchi, no respiratory distress, no retraction, no accessory muscle use Cardiovascular #1: normal peripheral pulses, regular rate, rhythm, no edema, no gallop, no JVD, no murmur Gastrointestinal: normal bowel sounds, non tender, soft, no mass, no organomegaly, non-distended, no guarding, no hernia, no pulsatile mass, no rebound Genitourinary: no CVA tenderness Musculoskeletal: normal inspection Neurologic: oriented x3, responsive, structural welder III-XII nml as tested, motor strength/ tone normal, sensory intact Psychiatric: mood/affect normal Skin: normal color, no rash, warm/dry, palpation normal Lymphatic: normal inspection, no adenopathy Medical Decision Making Diagnostic Impression: Primary Impression: urethritis ER Course Given the patient's history exam and presentation He does report that he has seen his primary physician in the past 3 weeks he reports that he had somewhat of an extensive STD examination which was essentially negative Given some of the presentations recently with the lymph node swelling is complaints of arthritis and STD type pathology patient was covered for possible syphilis Also azithromycin orally was provided patient does require improved outpatient follow-up and will return with any changes Last Vital Signs Date Time Temp Pulse Resp B/P (MAP) Pulse Ox O2 Delivery O2 Flow Rate FiO2 10/06/17 21:17 97.8 83 16 142/83 98 Room Air 97.9 Status: improved Disposition: HOME, SELF-CARE Condition: Improved Referrals: NON PHYSICIAN (PCP) Patient Instructions: Urethritis, Adult Additional Instructions: Patient is provided with the discharge instructions notified to follow up with primary doctor in the next 2-3 days otherwise return to the er with any worsening symptoms. Please note that this report is being documented using [employer] technology. This can lead to erroneous entry secondary to incorrect interpretation by the dictating instrument. Crissy Joy DO Oct 06, 2017 21:35
== END 2017-10-06 21:18 | disposition home or self-care (01) ==
LOC: EMR 21:16
DX: N34.2 Other urethritis (principal)
CPT/HCPCS: 96372; 99283; Q0144